=== PATIENT | female | born 1950 | race Caucasian/White ===

== ENCOUNTER → 2019-09-22 | Outpatient (CLI) | payer MEDICARE, OTHER ==
[~2019-09-22] MED LIST: ACET-2065 PO; ASPI325T17 PO; DOCU100C33 PO; HYDR-3240 PO; MAGN400O7 PO; ONDA4TAB10 PO; PANT40GR PO; PREG75CA PO; SOLI5TAB2 PO; THYR300T PO
== END | disposition home or self-care (01) ==
LOC: CFH 12:29
PROVIDERS: ATTEND Internal Medicine Cardiovascular Disease
DX: I08.2 Rheumatic disorders of both aortic and tricuspid valves (principal); I48.0 Paroxysmal atrial fibrillation
CPT/HCPCS: 93306

== ENCOUNTER → 2020-02-11 | Outpatient (CLI) | payer MEDICARE, OTHER ==
[~2020-02-11] MED LIST changes: +ASPI81TA45 PO; +ATOR40TA78 PO; +FLEC50TA25 PO; +HYDR5TAB13 PO; +METO25TA91 PO; +RIVA20TA PO
== END | disposition home or self-care (01) ==
LOC: STAR 15:07
PROVIDERS: ATTEND Obstetrics & Gynecology Female Pelvic Medicine and Reconstructive Surgery
DX: Z01.812 Encounter for preprocedural laboratory examination (principal); Z20.828 Contact with and (suspected) exposure to other viral communicable diseases; N39.3 Stress incontinence (female) (male); N81.6 Rectocele; N81.2 Incomplete uterovaginal prolapse
CPT/HCPCS: 36415; 87635; 93005

== ENCOUNTER → 2020-04-11 | Outpatient (CLI) | payer MEDICARE, OTHER ==
[~2020-04-11] MED LIST changes: +LIDOCAINE 1%, 20ML ONE; +SODIUM BICARBONATE 4.2%, 5ML ONE
== END | disposition home or self-care (01) ==
LOC: CFH 09:52
PROVIDERS: ATTEND Surgery
DX: C50.812 Malignant neoplasm of overlapping sites of left female breast (principal); Z88.1 Allergy status to other antibiotic agents; Z88.2 Allergy status to sulfonamides; Z79.899 Other long term (current) drug therapy; Z79.82 Long term (current) use of aspirin; Z72.89 Other problems related to lifestyle
CPT/HCPCS: 19285; 77065

== ENCOUNTER 2020-04-21 11:26 | Day surgery (SDC) | payer MEDICARE, OTHER ==
[~2020-04-21] VITALS: Ht 175.3 cm; Wt 94.8 kg
[~2020-04-21 11:26] MED LIST changes: +BUPIVACAINE/PF 0.5% ONE; +EPINEPHRINE 1 MG/ML, 1ML ONE; +ISOSULFAN BLUE 10 MG/ML, 5ML IV ONE; -LIDOCAINE 1%, 20ML ONE; -SODIUM BICARBONATE 4.2%, 5ML ONE
[2020-04-21] MEDS ORDERED: CHLORHEXIDINE 15 ML UDC MM ONE (12:00)
[2020-04-21] MEDS ORDERED: LACTATED RINGERS 1,000 ML IV SCH (12:00)
[2020-04-21] MEDS ORDERED: GABAPENTIN 300 MG CAPSULE PO ONE (12:00)
[2020-04-21] MEDS ORDERED: ACETAMINOPHEN 500 MG TABLET PO ONE (12:00)
[2020-04-21 12:05] VITALS: BP 124/84
[2020-04-21] MEDS ORDERED: FENTANYL PF 100 MCG/2ML ONE ×2 (13:04→16:15)
[2020-04-21] MEDS ORDERED: MIDAZOLAM 1 MG/ML, 2ML ONE (13:04)
[2020-04-21] MEDS ORDERED: PROMETHAZINE 25 MG/ML, 1ML IVPush PRN (15:00)
[2020-04-21] MEDS ORDERED: hydrALAzine 20 MG/ML, 1ML IV PRN (15:00)
[2020-04-21] MEDS ORDERED: LABETALOL 5MG/ML, 20ML IV PRN (15:00)
[2020-04-21] MEDS ORDERED: DIPHENHYDRAMINE 50 MG/ML, 1ML IVPush PRN (15:00)
[2020-04-21] MEDS ORDERED: DIAZEPAM 5 MG/ML, 2ML IVPush PRN (15:00)
[2020-04-21] MEDS ORDERED: MEPERIDINE/PF 25MG/0.5ML IVPush PRN (15:00)
[2020-04-21] MEDS ORDERED: HYDROmorphone 1 MG/ML, 1ML INJ IVPush PRN (15:00)
[2020-04-21] MEDS ORDERED: ONDANSETRON 2MG/ML, 2ML IVPush PRN (15:00)
[2020-04-21] MEDS: FENTANYL PF 100 MCG/2ML IV PRN ×2 (16:14→16:32)
[2020-04-21] MEDS ORDERED: OXYcodone 5 MG/5 ML ORAL.SOL UDC ONE (16:15)
[2020-04-21] MEDS: OXYcodone 5 MG/5 ML ORAL.SOL UDC PO PRN ×2 (16:19→17:48)
== END 2020-04-21 18:30 | disposition home or self-care (01) ==
LOC: OUT 11:26 → EDSTATUS 15:30 → OUT 18:30
PROVIDERS: ATTEND Surgery
DX: C50.412 Malignant neoplasm of upper-outer quadrant of left female breast (principal); Z20.828 Contact with and (suspected) exposure to other viral communicable diseases; I48.91 Unspecified atrial fibrillation; E78.5 Hyperlipidemia, unspecified; E03.9 Hypothyroidism, unspecified; E27.40 Unspecified adrenocortical insufficiency; E66.9 Obesity, unspecified; Z17.0 Estrogen receptor positive status [ER+]; Z68.31 Body mass index [BMI] 31.0-31.9, adult; Z79.01 Long term (current) use of anticoagulants; Z79.899 Other long term (current) drug therapy; Z86.73 Personal history of transient ischemic attack (TIA), and cerebral infarction without residual deficits; Z88.2 Allergy status to sulfonamides
CPT/HCPCS: 19301; 38525; 38792; 76098; 87635; 88307; 88329; 88331; 88334; A9541; C9898; J0171; J2250; J3010; J7120

== ENCOUNTER 2020-05-06 07:26 | Outpatient (CLI) | payer MEDICARE, OTHER ==
[~2020-05-06 07:26] MED LIST changes: -BUPIVACAINE/PF 0.5% ONE; -EPINEPHRINE 1 MG/ML, 1ML ONE; -ISOSULFAN BLUE 10 MG/ML, 5ML IV ONE
== END 2020-05-06 23:59 | disposition home or self-care (01) ==
LOC: ROC 07:26
PROVIDERS: ATTEND Radiology Radiation Oncology
DX: C50.812 Malignant neoplasm of overlapping sites of left female breast (principal); C50.412 Malignant neoplasm of upper-outer quadrant of left female breast; I48.91 Unspecified atrial fibrillation; E03.9 Hypothyroidism, unspecified; E78.5 Hyperlipidemia, unspecified; E66.9 Obesity, unspecified; Z68.31 Body mass index [BMI] 31.0-31.9, adult; Z17.0 Estrogen receptor positive status [ER+]; Z79.899 Other long term (current) drug therapy; Z79.01 Long term (current) use of anticoagulants; Z79.82 Long term (current) use of aspirin
CPT/HCPCS: G0463

== ENCOUNTER 2020-07-01 07:12 | Outpatient (CLI) | payer MEDICARE, OTHER ==
[~2020-07-01 07:12] MED LIST changes: +HYDR-1067 PO; -HYDR-3240 PO
== END 2020-07-01 23:59 | disposition home or self-care (01) ==
LOC: ROC 07:12
PROVIDERS: ATTEND Radiology Radiation Oncology
DX: Z08 Encounter for follow-up examination after completed treatment for malignant neoplasm (principal); Z85.3 Personal history of malignant neoplasm of breast; I48.91 Unspecified atrial fibrillation; E66.9 Obesity, unspecified; Z68.31 Body mass index [BMI] 31.0-31.9, adult; Z17.0 Estrogen receptor positive status [ER+]; E78.5 Hyperlipidemia, unspecified; E03.9 Hypothyroidism, unspecified; Z79.01 Long term (current) use of anticoagulants; Z79.82 Long term (current) use of aspirin
CPT/HCPCS: G0463

== ENCOUNTER 2020-10-27 10:09 | Outpatient (CLI) | payer MEDICARE, OTHER ==
[~2020-10-27 10:09] MED LIST changes: -HYDR-1067 PO; +HYDR-2214 PO
[2020-10-27 11:49] LABS: BASOPHILS % (AUTO) 0 % (0-1); EOSINOPHILS % (AUTO) 3 % (1-7); LYMPHOCYTES % (AUTO) 13 % (22-44); MEAN CORPUSCULAR HEMOGLOBIN 34.4 pg (27.0-34.8); MEAN CORPUSCULAR HGB CONC 34.5 g/dL (32.4-35.8); MEAN PLATELET VOLUME 8.4 fL (7.4-10.4); MONOCYTES % (AUTO) 12 % (2-9); NEUTROPHILS % (AUTO) 73 % (42-75); PLATELET COUNT 330 x10^3/uL (130-400); RED BLOOD COUNT 4.33 x10^6/uL (3.82-5.3); RED CELL DISTRIBUTION WIDTH 13.5 % (9.6-15.2)
[2020-10-27 11:53] LABS: ANION GAP 5 mmol/L (5-15); CALCIUM 9.8 mg/dL (8.5-10.1); CHLORIDE 112 mmol/L (98-107); CREATININE 0.91 mg/dL (0.55-1.02)
[2020-10-27 11:55] LABS: INTERNATIONAL NORMALIZED RATIO 1.02 (0.93-1.1); PROTHROMBIN TIME 10.9 Seconds (9.6-11.5)
[2020-10-27] MEDS ORDERED: OXYB10TA26 PO (12:07)
[2020-10-27] MEDS ORDERED: HYDR5TAB13 PO (12:07)
[2020-10-27] MEDS ORDERED: CHOL10003 PO (12:07)
[2020-10-27] MEDS ORDERED: MULT-464 PO (12:07)
== END 2020-10-27 23:59 | disposition home or self-care (01) ==
LOC: STAR 10:09
PROVIDERS: ATTEND Orthopaedic Surgery
DX: Z01.810 Encounter for preprocedural cardiovascular examination (principal); Z01.818 Encounter for other preprocedural examination; M17.12 Unilateral primary osteoarthritis, left knee; M25.562 Pain in left knee; Z79.01 Long term (current) use of anticoagulants; Z20.822 Contact with and (suspected) exposure to COVID-19
CPT/HCPCS: 36415; 80048; 83036; 85025; 85610; 85730; 87081; 87806; 93005; U0003; U0005; G0475

== ENCOUNTER 2020-10-31 10:00 | Observation (INO) | payer MEDICARE, OTHER ==
[~2020-10-31] VITALS: Ht 172.7 cm; Wt 104.9 kg
[~2020-10-31 10:00] MED LIST changes: +CHOL10003 PO; +EPINEPHRINE 1 MG/ML, 1ML ONE; +KETOROLAC 60 MG/2 ML ONE; +MULT-464 PO; +OXYB10TA26 PO; +ROPIvacaine/PF 0.2%, 20 ML ONE; +SODIUM CHLORIDE 0.9% 50 ML ONE; +TRANEXAMIC ACID 100 MG/ML, 10ML ONE; +VANCOMYCIN 1,000 MG ONE
[2020-10-31] MEDS ORDERED: CHLORHEXIDINE 15 ML UDC ONE (10:55)
[2020-10-31] MEDS ORDERED: GABAPENTIN 300 MG CAPSULE PO ONE (11:00)
[2020-10-31] MEDS ORDERED: CHLORHEXIDINE 15 ML UDC PO ONE (11:00)
[2020-10-31] MEDS ORDERED: LACTATED RINGERS 1,000 ML IV SCH (11:00)
[2020-10-31] MEDS ORDERED: ACETAMINOPHEN 500 MG TABLET PO ONE (11:00)
[2020-10-31] MEDS ORDERED: VANCOMYCIN PER PHARMACY MC PRN (13:00)
[2020-10-31] MEDS ORDERED: VANCOMYCIN 2,000 MG in SODIUM CHLORIDE 0.9% 500 ML IV ONE (13:05)
[2020-10-31] MEDS ORDERED: MIDAZOLAM 1 MG/ML, 2ML ONE (13:52)
[2020-10-31] MEDS ORDERED: FENTANYL PF 250 MCG/5ML ONE (13:52)
[2020-10-31] MEDS ORDERED: ONDANSETRON 2MG/ML, 2ML IVPush PRN ×2 (15:30→17:30)
[2020-10-31] MEDS ORDERED: ONDANSETRON 4 MG TABLET PO PRN (15:30)
[2020-10-31] MEDS ORDERED: POLYETHYLENE GLYCOL 17 GM PACKET PO PRN (15:30)
[2020-10-31] MEDS ORDERED: SENNA/DOCUSATE TABLET PO PRN (15:30)
[2020-10-31] MEDS ORDERED: DEXAMETHASONE 4 MG/ML, 1ML IVPush SCH (15:30)
[2020-10-31] MEDS ORDERED: DIPHENHYDRAMINE 50 MG/ML, 1ML IVPush PRN (15:30)
[2020-10-31] MEDS ORDERED: MAGNESIUM HYDROXIDE 8%, 30ML UDC PO PRN (15:30)
[2020-10-31] MEDS ORDERED: ACETAMINOPHEN 650 MG/20.3 ML UDC PO PRN (15:30)
[2020-10-31] MEDS ORDERED: PSYLLIUM PACKET PO PRN (15:30)
[2020-10-31] MEDS ORDERED: VANCOMYCIN PMX 1GM/200ML 200 ML IVPB SCH (15:30)
[2020-10-31] MEDS ORDERED: HYDROmorphone 1 MG/ML, 1ML INJ IVPush PRN (15:30)
[2020-10-31] MEDS ORDERED: METOCLOPRAMIDE 5 MG/ML, 2ML IVPush PRN (15:30)
[2020-10-31] MEDS ORDERED: DIPHENHYDRAMINE 25 MG CAPSULE PO PRN (15:30)
[2020-10-31] MEDS ORDERED: ALUMINUM/MAG/SIMETHICONE 30 ML UDC PO PRN (15:30)
[2020-10-31] MEDS ORDERED: ONDANSETRON 2MG/ML, 2ML ONE (16:28)
[2020-10-31] MEDS ORDERED: CEFAZOLIN 1,000 MG ONE (16:28)
[2020-10-31] MEDS ORDERED: DEXAMETHASONE 4 MG/ML, 1ML ONE (16:28)
[2020-10-31] MEDS ORDERED: BUPIVACAINE/PF 0.25% ONE (16:28)
[2020-10-31] MEDS ORDERED: PROPOFOL 10 MG/ML, 20ML ONE (16:28)
[2020-10-31] MEDS ORDERED: LIDOCAINE-MPF 2% ,5ML ONE (16:28)
[2020-10-31] MEDS ORDERED: TRANEXAMIC ACID 1,000 MG in SODIUM CHLORIDE 0.9% 100 ML IVPB ONE (16:48)
[2020-10-31] MEDS ORDERED: KETOROLAC 30 MG/1 ML ONE (16:52)
[2020-10-31] MEDS ORDERED: OXYcodone 5 MG/5 ML ORAL.SOL UDC ONE ×2 (16:53→17:13)
[2020-10-31] MEDS: KETOROLAC 30 MG/1 ML IV SCH (17:00)
[2020-10-31] MEDS ORDERED: FENTANYL PF 100 MCG/2ML ONE (17:12)
[2020-10-31] MEDS ORDERED: OXYcodone 5 MG/5 ML ORAL.SOL UDC PO PRN (17:30)
[2020-10-31] MEDS ORDERED: ACETAMINOPHEN 325 MG TABLET PO PRN (17:30)
[2020-10-31] MEDS ORDERED: FENTANYL PF 100 MCG/2ML IV PRN (17:30)
[2020-10-31] MEDS ORDERED: PROMETHAZINE 25 MG/ML, 1ML IVPush PRN (17:30)
[2020-10-31] MEDS ORDERED: MEPERIDINE/PF 25MG/0.5ML IVPush PRN (17:30)
[2020-10-31 20:20] VITALS: BP 107/69
[2020-10-31] MEDS ORDERED: HYDROCORTISONE 5 MG TABLET PO SCH (21:00)
[2020-10-31] MEDS: METOPROLOL SUCCINATE 25 MG TAB.ER.24H PO SCH (21:00)
[2020-10-31] MEDS ORDERED: ATORVASTATIN 40 MG TABLET PO SCH (21:00)
[2020-10-31 21:24] VITALS: BP 90/53
[2020-10-31] MEDS: DOCUSATE 100 MG CAPSULE PO SCH (21:52)
[2020-10-31 22:46] VITALS: BP 104/67
[2020-10-31] MEDS ORDERED: LACTATED RINGERS 500 ML IVBOLUS ONE (23:30)
[2020-10-31] MEDS: OXYcodone IR 5MG TABLET PO PRN (23:33)
[2020-10-31] MEDS: CEFAZOLIN PMX 1GM/50ML 50 ML IVPB SCH (23:33)
[2020-11-01] VITALS (8 sets, daily range): BP systolic 98–137; BP diastolic 61–80
[2020-11-01] MEDS: KETOROLAC 30 MG/1 ML IV SCH ×2 (00:42→07:43)
[2020-11-01] MEDS: POTASSIUM CHLORIDE 20 MEQ in D5%-0.45% NACL 1,000 ML IV SCH ×2 (01:07→11:10)
[2020-11-01] MEDS ORDERED: RIVAROXABAN 20 MG TABLET PO SCH (06:00)
[2020-11-01] MEDS: CEFAZOLIN PMX 1GM/50ML 50 ML IVPB SCH (07:43)
[2020-11-01] MEDS: METOPROLOL SUCCINATE 25 MG TAB.ER.24H PO SCH (07:43)
[2020-11-01] MEDS: DOCUSATE 100 MG CAPSULE PO SCH (07:43)
[2020-11-01] MEDS ORDERED: HYDROCORTISONE 10 MG TABLET PO SCH (09:00)
[2020-11-01] MEDS: OXYcodone IR 5MG TABLET PO PRN ×2 (09:34→14:21)
== END 2020-11-01 16:15 | disposition home or self-care (01) ==
LOC: OUT 10:00 → ORIP 15:08 → 4NE 18:27
PROVIDERS: ADMIT Orthopaedic Surgery; ATTEND Orthopaedic Surgery
DX: T84.093A Other mechanical complication of internal left knee prosthesis, initial encounter (principal); M17.12 Unilateral primary osteoarthritis, left knee; M71.22 Synovial cyst of popliteal space [Baker], left knee; G47.30 Sleep apnea, unspecified; I10 Essential (primary) hypertension; E78.5 Hyperlipidemia, unspecified; E03.9 Hypothyroidism, unspecified; Y79.2 Prosthetic and other implants, materials and accessory orthopedic devices associated with adverse incidents; Z79.899 Other long term (current) drug therapy; Z85.028 Personal history of other malignant neoplasm of stomach; Z86.73 Personal history of transient ischemic attack (TIA), and cerebral infarction without residual deficits
CPT/HCPCS: 27487; 36415; 73560; 85014; 85018; 96361; 96365; 96366; 96375; 96376; 97110; 97116; 97161; 97166; 97530; C1713; C1776; G0378; J0171; J0690; J1100; J1885; J2250; J2405; J2704; J2795; J3010; J3370; J3480; J3490; J7040; J7120